=== PATIENT | female | born 1980 | race Asian ===

== ENCOUNTER 2023-12-07 08:08 | Outpatient (CLI) | payer BC ==
[2023-12-07] MEDS ORDERED: Iopamidol 370 76% 100 ML VIAL ONE (11:32)
== END 2023-12-07 08:09 | disposition home or self-care (01) ==
LOC: CSHCT 08:08
PROVIDERS: ATTEND Internal Medicine Cardiovascular Disease
DX: I35.1 Nonrheumatic aortic (valve) insufficiency (principal)
CPT/HCPCS: 71275; Q9967

== ENCOUNTER 2024-03-29 14:16 | Outpatient (CLI) | payer BC | END 2024-03-29 14:17 | disposition home or self-care (01) | LOC: CSHCT 14:16 | PROVIDERS: ATTEND Urology | DX: N20.0 Calculus of kidney (principal); N83.9 Noninflammatory disorder of ovary, fallopian tube and broad ligament, unspecified; R16.0 Hepatomegaly, not elsewhere classified | CPT/HCPCS: 74176 ==